=== PATIENT | male | born 1980 | race Two or more races ===

== ENCOUNTER 2023-09-23 22:31 | Emergency (ER) | payer SELFPAY ==
[2023-09-23] VITALS (7 sets, daily range): BP systolic 112–120; BP diastolic 84–87; PULSE 98–118; RESP 13–19; TEMP 36.4; O2SAT 97–100
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
--- NOTE | 2023-09-23 23:40 | PC.NURSE ---
[place] industrial trainer used for patient. This RN asked if patient had any allergies and patient stated he has no known allergies.
[2023-09-23] MEDS: TETANUS,DIPHTHERIA,AC PERTUSSIS ADULT (0.5 ML) BOOSTRIX IM (23:46)
[2023-09-23] MEDS: ONDANSETRON INJ 4 MG/2 ML VIAL IV PUSH (23:47)
[2023-09-24] VITALS (13 sets, daily range): BP systolic 111–120; BP diastolic 81–99; PULSE 96–111; RESP 12–20; O2SAT 96
[2023-09-24] MEDS: ceFAZolin 2 GM/D5W 50 ML 2 GM/50 ML BAG IVPB (00:06)
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
[2023-09-24 00:19] LABS: Basophils Absolute Auto 0.1 K/mm3 (0.0-0.1); Basophils Percent Auto 0.4 % (0.2-1.2); Eosinophils Percent Auto 0.1 % (0-4.4); Hematocrit 42.3 % (42.0-52.0); Hemoglobin 13.8 g/dL (14.0-18.0); Immature Granulocyte Absolute 0.08 K/mm3 (0.00-0.031); Immature Granulocyte Percent A 0.5 % (0-0.5); Lymphocytes Absolute Auto 1.02 K/mm3 (0.9-3.2); Lymphocytes Percent Auto 6.9 % (18.3-44.2); Mean Corpuscular HGB Conc 32.6 g/dl (32-36); Mean Corpuscular Hemoglobin 30.8 pg (26-34); Mean Corpuscular Volume 94.4 fl (80-100); Mean Platelet Volume 9.6 fl (7.4-10.4); Monocytes Absolute Auto 0.8 K/mm3 (0.1-0.6); Monocytes Percent Auto 5.2 % (2.6-8.5); Neutrophils Absolute Auto 12.9 K/mm3 (1.3-6.7); Neutrophils Percent Auto 86.9 % (45.5-73.1); Platelet Count Result 249 k/mm3 (150-375); Red Blood Count 4.48 M/mm3 (4.6-6.20); Red Cell Distribution Width 14.1 % (11.5-14.5); White Blood Count 14.9 K/mm3 (4.5-10.0)
[2023-09-24] MEDS: MORPHINE SULFATE (*CRX) 4 MG/ML INJ IV PUSH (00:27)
[2023-09-24 00:50] LABS: Alanine Aminotransferase 244 U/L (6-50); Albumin Level 4.6 g/dL (3.5-5.1); Alkaline Phosphatase 79 U/L (38-126); Anion Gap 17 mmol/L (8-16); Aspartate Amino Transferase 316 U/L (17-59); Bilirubin,Total 0.6 mg/dL (0.2-1.3); Blood Urea Nitrogen 13 mg/dL (9-20); Calcium 8.3 mg/dL (8.4-10.2); Carbon Dioxide 22 mmol/L (22-30); Chloride 100 mmol/L (98-107); Estimated Glomerular Filt Rate > 60; Glucose 102 mg/dL (65-110); Potassium 4.1 mmol/L (3.4-5.0); Sodium 139 mmol/L (137-145)
[2023-09-24 00:54] LABS: Ethanol 334 mg/dL (<10)
== END 2023-09-24 02:38 | disposition short-term general hospital (02) ==
LOC: ANHED 09-24 01:32
PROVIDERS: Emergency Provider Emergency Medicine
DX: S01.111A Laceration without foreign body of right eyelid and periocular area, initial encounter (principal); S02.31XA Fracture of orbital floor, right side, initial encounter for closed fracture; S02.2XXA Fracture of nasal bones, initial encounter for closed fracture; S02.40CA Maxillary fracture, right side, initial encounter for closed fracture; Y04.0XXA Assault by unarmed brawl or fight, initial encounter; Z23 Encounter for immunization
CPT/HCPCS: 36415; 70450; 70486; 72125; 73130; 80053; 80307; 85025; 90471; 90715; 96365; 96374; 96375; 99285; J0690; J2270; J2405